=== PATIENT | male | born 1935 | race Caucasian/White ===

== ENCOUNTER 2016-07-15 13:21 | Observation (INO) | payer OTHER ==
[~2016-07-15] VITALS: Ht 175.3 cm; Wt 86.9 kg
[2016-07-15 14:03] LABS: HEMATOCRIT 39.8 % (38.0-50.0); MCH 30.3 PG (29.0-34.0); MCHC 33.9 G/DL (30.0-36.0); MCV 89.2 FL (86-99); MEAN PLAT.VOLUME 11.8 uM^3 (9.0-12.4); PLATELET COUNT 176 K/uL (156-360); RBC DIS.WIDTH-CV 14.2 % (11.8-14.6); RED BLOOD COUNT 4.46 M/uL (4.00-5.50); WHITE BLOOD COUNT 6.8 K/uL (4.1-10.2)
[2016-07-15 14:12] LABS: CHLORIDE 103 mEq/L (99-109); POTASSIUM 3.6 mEq/L (3.7-5.4); SODIUM 138 mEq/L (136-147)
[2016-07-15 14:14] LABS: GLUCOSE 162 mg/dL (70-99)
[2016-07-15 14:15] LABS: ANION GAP 10 MEQ/L (2-14)
[2016-07-15 14:18] LABS: GFR ESTIMATE (CALCULATED) > 59 mL/min/
[2016-07-15 14:19] LABS: UREA NITROGEN (BUN) 11 mg/dL (9-23)
[2016-07-15 14:24] LABS: TROP-I INTERPRETATION NEGATIVE; TROPONIN-I 0.07 ng/mL (0.0-0.30)
[2016-07-15] MEDS ORDERED: ALTACE10 MG PO (16:11)
[2016-07-15] MEDS ORDERED: CARDURA8 MG PO (16:11)
[2016-07-15] MEDS ORDERED: DIGITEK250 MC2 PO (16:12)
[2016-07-15] MEDS ORDERED: COUMADIN2.5 MG PO ×2 (16:13→16:14)
[2016-07-15] MEDS ORDERED: DOXYCYCLINE HYC20 MG PO (16:15)
[2016-07-15] MEDS ORDERED: PROSCAR5 MG PO (16:16)
[2016-07-15] MEDS ORDERED: MULTIVITAMIN1 EAC2 PO (16:16)
[2016-07-15] MEDS ORDERED: FAMOTIDINE20 MG PO (16:16)
[2016-07-15] MEDS ORDERED: SIMVASTATIN20 MG PO (16:17)
[2016-07-15] MEDS ORDERED: GLUCOPHAGE1000 MG PO (16:17)
[2016-07-15] MEDS ORDERED: HYDROCHLOROTHIA25 MG PO (16:17)
[2016-07-15] MEDS ORDERED: ACTOS45 MG PO (16:18)
[2016-07-15] MEDS ORDERED: JANUVIA25 M1 PO (16:18)
[2016-07-15] MEDS ORDERED: DUTASTERIDE0.5 MG PO (16:18)
[2016-07-15] MEDS ORDERED: GLUCOTROL XL5 MG PO (16:18)
[2016-07-15] MEDS ORDERED: ULTRAM50 MG PO (16:19)
[2016-07-15] MEDS ORDERED: TYLENOL EXTRA500 MG PO (16:20)
[2016-07-15] MEDS ORDERED: VOLTAREN 1% GE100 GM TP (16:21)
[2016-07-15 16:44] LABS: HDL CHOLESTEROL 29 MG/DL (Desirable>=40); LDL CHOLESTEROL 18 mg/dL (Desirable<100); NON-HDL CHOLESTEROL 32 mg/dL (Desirable<160); TOTAL CHOLESTEROL 61 mg/dL (Desirable<200); TRIGLYCERIDES 71 MG/DL (Normal: <150)
[2016-07-15 16:49] LABS: INTER. NORMALIZED RATIO 2.5; PROTHROMBIN TIME 26.2 (9.2-11.2)
[2016-07-15 17:04] VITALS: BP 153/81
[2016-07-15 18:08] LABS: TROP-I INTERPRETATION NEGATIVE
[2016-07-15 21:00] VITALS: BP 162/91
[2016-07-15 23:44] VITALS: BP 133/59
[2016-07-16 01:08] LABS: TROP-I INTERPRETATION NEGATIVE; TROPONIN-I 0.07 ng/mL (0.0-0.30)
[2016-07-16 04:11] VITALS: BP 165/91
[2016-07-16 05:29] LABS: HEMATOCRIT 37.4 % (38.0-50.0); MCH 29.9 PG (29.0-34.0); MCHC 32.9 G/DL (30.0-36.0); MEAN PLAT.VOLUME 12.4 uM^3 (9.0-12.4); PLATELET COUNT 165 K/uL (156-360); RBC DIS.WIDTH-CV 14.5 % (11.8-14.6); RED BLOOD COUNT 4.11 M/uL (4.00-5.50); WHITE BLOOD COUNT 7.2 K/uL (4.1-10.2)
[2016-07-16 05:37] LABS: INTER. NORMALIZED RATIO 2.3; PROTHROMBIN TIME 24.3 (9.2-11.2)
[2016-07-16 05:41] LABS: ALKALINE PHOSPHATASE 34 IU/L (3-129); ANION GAP 11 MEQ/L (2-14); CHLORIDE 102 MEQ/L (99-109); GFR ESTIMATE (CALCULATED) > 59 mL/min/; GLUCOSE 65 mg/dL (70-99); POTASSIUM 3.6 MEQ/L (3.7-5.4); SAMPLE HEMOLYSIS CHECK 0; SAMPLE ICTERIC CHECK 0; SAMPLE LIPEMIA CHECK 0; SODIUM 139 MEQ/L (136-147); TOTAL BILIRUBIN 0.6 MG/DL (0.0-1.0); UREA NITROGEN (BUN) 15 mg/dL (9-23)
[2016-07-16 07:29] VITALS: BP 180/90
[2016-07-16] MEDS ORDERED: PROTONIX40 MG PO (12:11)
== END 2016-07-16 12:10 | disposition home or self-care (01) ==
LOC: EME 13:21 → EDOF 15:55 → 5WEST 16:44
PROVIDERS: Internal Medicine
DX: R07.89 Other chest pain (principal); R10.13 Epigastric pain; E87.6 Hypokalemia; E11.9 Type 2 diabetes mellitus without complications; I48.91 Unspecified atrial fibrillation; I10 Essential (primary) hypertension; E78.5 Hyperlipidemia, unspecified; Z79.01 Long term (current) use of anticoagulants
CPT/HCPCS: 71020; 80048; 80053; 80061; 84484; 85027; 85610; 93005; 99281; 99285; G0378